=== PATIENT | female | born 1975 ===

== ENCOUNTER 2023-01-10 01:37 | Emergency (ER) | payer SELFPAY ==
[~2023-01-10] VITALS: Ht 167.6 cm; Wt 54.5 kg
[2023-01-10 02:04] VITALS: TEMP 97.9
[2023-01-10] MEDS ORDERED: SODIUM CHLORIDE 0.9% 1,000 ML IV ONE (02:30)
[2023-01-10 02:55] VITALS: BP 127/82; PULSE 78; RESP 18
== END 2023-01-10 04:05 | disposition left against medical advice (07) ==
LOC: EMS 01:41
DX: S09.8XXA Other specified injuries of head, initial encounter (principal); F10.90 Alcohol use, unspecified, uncomplicated; M54.2 Cervicalgia; V89.2XXA Person injured in unspecified motor-vehicle accident, traffic, initial encounter; Y93.89 Activity, other specified; Y92.89 Other specified places as the place of occurrence of the external cause; Y99.8 Other external cause status; Y90.9 Presence of alcohol in blood, level not specified
CPT/HCPCS: 70450; 72125; 96360; 99284